=== PATIENT | male | born 1980 | race African-American/Black ===

== ENCOUNTER 2021-04-04 16:54 | Emergency (ER) | payer SELFPAY ==
[2021-04-05 15:08] LABS: SARS-CoV-2 PCR by NAA Not Detected (NotDetected)
== END 2021-04-04 19:40 | disposition home or self-care (01) ==
LOC: CSHERS 16:54
DX: R19.7 Diarrhea, unspecified (principal); R11.2 Nausea with vomiting, unspecified; Z20.822 Contact with and (suspected) exposure to COVID-19; I10 Essential (primary) hypertension
CPT/HCPCS: 99283; U0003; U0005